=== PATIENT | female | born 1940 | race Caucasian/White ===

== ENCOUNTER 2019-11-05 08:39 | Inpatient (IN) | payer MEDICARE, BC ==
[2019-11-05] VITALS (8 sets, daily range): BP systolic 112–131; BP diastolic 67–84
[~2019-11-05] VITALS: Ht 165.1 cm; Wt 81.6 kg
--- NOTE | ~2019-11-05 | HEMODYNAMI ---
PATIENT:ASHVIN BERUMEN MEDICAL RECORD: [id number] : 42 LOCATION:[facility] ADMISSION DATE: 11/05/19 Generatedon:11/05/201910:28 Patient name: ASHVIN BERUMEN Patient #: [id number] SSN: : Date of study: 11/05/2019 Page: Of Hemodynamic Procedure Report Patient Data Patient Demographics Procedure consent was obtained First Name: ASHVIN Gender: Female Last Name: ATA : 1940 Patient #: [id number] Age: 79 year(s) Race: Additional ID: [id number] Past Medical History Allergies Allergen Reaction Date Comments Reported Sulfa drugs 11/05/2019 Admission Admission Data Admission Date: 11/05/2019 Admission Time: 8:39 Arrival Date: 11/05/2019 Arrival Time: 0:00 Height (in.): 64.96 BSA: 1.89 (m2) Height (cm.): 165 BMI: 29.99 (kg/m2) Weight (lbs.): 180 Weight (kg.): 81.65 Procedure Procedure Types Cath Procedure Diagnostic Procedure [facility] w/Coronaries Sedation Charges Moderate Sedation up to 45 minutes PCI Procedure Coronary Stent Coronary Stent Initial AMI/SVG/HYDROELECTRIC PLANT TECHNICIAN PTCA or Stent AMI-BMS/ROMAIN Initial Hemochron ACT Test Procedure Description Procedure Date Procedure Date: 11/05/2019 Procedure Start Time: 9:16 Procedure End Time: 10:26 Procedure Staff Name Function You Meehan MD Performing Physician Any Camacho RT Monitor Debbie Smith RN Nurse Kenzie Galvin RT Scrub Kim Garber RT Dry Cleaner Helper Indication NSTEMI Procedure Data Cath Procedure Fluoroscopy Diagnostic fluoroscopy Total fluoroscopy Time: time: 16.7 min 16.7 min Diagnostic fluoroscopy Total fluoroscopy dose: dose: 1954 mGy 1954 mGy Contrast Material Contrast Material Type Amount (ml) Isovue 300 191 Entry Location Entry Primary Successful Side Size Upsize 1 Upsize Entry Closure Thakkar ccessful Closure Location (Fr) (Fr) 2 (Fr) Remarks Device Remarks Femoral Right 6 Fr 6 Fr artery Short Mid-Length Estimated blood loss: 10 ml Diagnostic catheters Device Type Used For End Catheter Placement MULTIPACK JL 4.0 5Fr Left Coronary catheter Angiography MULTIPACK 3DRC 5Fr Right Coronary catheter Angiography MULTIPACK Pigtail 5 Fr LV Angiography catheter Procedure Complications No complications Procedure Medications Medication Administration Route Dosage 0.9% NaCl I.V. 100 ml/hr Oxygen etCO2 Nasal cannula 2 l/min Lidocaine 2% added to field 20 Heparin Flush Bag 2 bags (1000units/500ml NS) Benadryl I.V. 50 mg Zofran I.V. 4 mg Phenergan I.M. 25 mg Versed I.V. 2 mg Fentanyl I.V. 50 mcg Narcan I.V. 0.4 mg Versed I.V. 2 mg Lopressor I.V. 5 mg Integrilin Drip I.V. drip 6.5 ml/hr (75mg/100ml) Heparin Bolus I.V. 5000 units Integrilin (Bolus I.V. 7.3 ml 2mg/ml) Integrilin (Bolus wasted 2.7 ml 2mg/ml) Heparin Bolus I.V. 3000 units Fentanyl I.V. 50 mcg Hemodynamics Rest BSA: 1.89 (m2) O2 Consumption: Estimated: 180.11 (ml/min) O2 Consumption indexed : Estimated:95.3 (ml/min/m) Heart Rate: 83 (bpm) Pressure Samples Time Site Value (mmHg) Purpose Heart Use Rate(bpm) 9:56 LV 143/23,26 Snapshot 119 9:56 AO 139/83(114) Pullback 107 Gradients Valve Time Site Site 2 Mean SEP/DFP Peak To Heart Use 1 (mmHg) (sec/min) Peak Rate (mmHg) (bpm) Aortic 9:56 LV AO 45 21 107 139/83(114) Calculations Valve P-P Mean Valve Index Valve Source Name Gradient Area Flow (cm2) Aortic 45 45 Snapshots Pre Cath Intra NCS Post Cath Vital Signs Time Heart Resp SPO2 etCO2 NIBP (mmHg) Rhythm Pain Sedation Rate (ipm) (%) (mmHg) Status Level (bpm) 9:07:31 81 14 99 9 158/88(130) NSR 0 (11) 10(A) , No pain 9:11:45 120 17 99 4 124/98(106) ST 0 (11) 10(A) , No pain 9:16:45 108 [address] 0 (11) 10(A) , No pain 9:16:46 109 24 99 3.7 167/106(132) ST 0 (11) 10(A) , No pain 9:21:45 [address] 0 (11) 3(A) , No pain 9:23:05 116 19 [address] 0 (11) 10(A) , No pain 9:25:51 116 21 99 0.7 168/110(153) ST 0 (11) 10(A) , No pain 9:30:13 94 24 98 18.8 164/99(126) NSR 0 (11) 9(A) , No pain 9:34:32 84 20 95 17.2 154/84(115) NSR 0 (11) 9(A) , No pain 9:38:48 84 21 86 1.5 141/86(116) NSR 0 (11) 9(A) , No pain 9:43:02 85 19 93 36 141/84(119) NSR 0 (11) 9(A) , No pain 9:48:01 87 17 91 27 Measuring NSR 0 (11) 9(A) , No pain 9:48:29 87 18 92 24.8 142/82(112) NSR 0 (11) 9(A) , No pain 9:52:45 84 18 97 9.7 136/82(111) NSR 0 (11) 9(A) , No pain 9:56:57 89 16 96 24.8 149/87(112) NSR 0 (11) 9(A) , No pain 10:01:11 94 18 95 33.1 146/94(121) NSR 0 (11) 9(A) , No pain 10:05:19 93 18 95 15.7 149/95(130) NSR 0 (11) 9(A) , No pain 10:09:41 125 22 98 21.8 145/100(116) NSR 0 (11) 9(A) , No pain 10:14:40 109 12 99 11.2 Measuring NSR 0 (11) 9(A) , No pain 10:14:48 95 12 99 33 155/101(118) NSR 0 (11) 9(A) , No pain 10:19:04 86 14 99 0.7 145/82(125) NSR 0 (11) 9(A) , No pain 10:23:18 89 14 94 26.3 144/88(126) NSR 0 (11) 9(A) , No pain Medications Time Medication Route Dose Verified Delivered Reason Notes Effectiveness by by 9:16:50 0.9% NaCl I.V. 100 You Debbie used for ml/hr ShefaliSantiago Smith procedure MD DAILY 9:16:57 Oxygen etCO2 2 You Debbie used for Nasal l/min [place] Luis procedure cannula MD DAILY 9:17:01 Lidocaine 2% added 20ml You Orta for local to vial [facility] anesthetic field MD MCINTYRE 9:17:32 Heparin Flush 2 You You used for Bag bags [facility] procedure (1000units/500ml MD MCINTYRE NS) 9:17:41 Benadryl I.V. 50 mg You Debbie used for ShefaliSantiago Smith procedure MD DAILY 9:17:51 Zofran I.V. 4 mg You Debbie for nausea [facility] Smith MD, RN 9:18:11 Phenergan I.M. 25 mg You Debbie for nausea [facility] Smith MD RN 9:18:22 Versed I.V. 2 mg You Debbie for sedation [facility] Smith MD RN 9:18:27 Fentanyl I.V. 50 You Debbie for sedation mcg [facility] Smith MD, RN 9:22:41 Narcan I.V. 0.4 You Mirandaa used for mg [facility] Santiago mckenna MD, RN 9:25:29 Versed I.V. 2 mg You Debbie for sedation [facility] Smith MD RN 9:26:15 Heparin Bolus I.V. 5000 You Debbie for verif ied units [place] Luis anticoagulation with Dr. MD DAILY [place] 9:26:31 Integrilin I.V. 7.3 You Debbie for (Bolus 2mg/ml) ml [facility] Santiago Smith antiplatelet RN therapy 9:29:15 Lopressor I.V. 5 mg You Debbie for [facility] Santiago Smith hypertension MD DAILY 9:48:07 Integrilin Drip I.V. 6.5 You Debbie for (75mg/100ml) drip ml/hr [facility] Santiago Smith antiplatelet RN therapy 9:48:54 Integrilin wasted 2.7 You Lewis for (Bolus 2mg/ml) ml [facility] Santiago Smith antiplatelet RN therapy 9:51:42 Heparin Bolus I.V. 3000 You Lewis for verif ied units [facility] Santiago Smith anticoagulation with Dr. MCINTYRE RN [facility] 10:19:33 Fentanyl I.V. 50 Yuo Lewis Per physician [facility] Santiago Smith MD stage manager Log Time Note 8:50:16 Kim Garber RT(R) sent for patient. Start room use. 8:58:07 Informed consent obtained and on chart 8:58:55 Indication : NSTEMI 8:59:12 Procedure Status Emergent Heart Cath (AMI). 8:59:31 Time tracking: Regular hours (M-F 7:00 - 5:00) 8:59:39 Plan of Care:Hemodynamics will remain stable., Cardiac rhythm will remain stable., Comfort level will be maintained., Respiratory function will remain adequate., Patient/ family verbilizes understanding of procedure., Procedure tolerated without complication., Recovers from procedure without complications.. 8:59:46 ACC Patient presents with STEMI CCS Anginal Class 4--Inability to carry out any physical activity w/o angina. Angina may occur at rest. 8:59:59 Patient received from ED to CCL 2 Alert and oriented. Tansferred to table in Supine position. 9:00:02 Warm blankets applied, and edu hugger turned on for patient comfort. 9:00:03 Correct patient and procedure confirmed by team. 9:00:04 ECG and BP/O2 sat monitors applied to patient. 9:01:34 Full Disclosure recording started 9:01:37 H&P Date Dictated: 11/05/2019 ER History on chart.. 9:01:38 Pre-procedure instructions explained to patient. 9:01:38 Pre-op teaching completed and patient verbalized understanding. 9:01:39 Family unavailable. 9:01:55 Patient allergic to Sulfa drugs 9:01:57 Is patient on blood thinner?No 9:01:58 Patient diabetic? Yes. 9:02:00 If diabetic: On Metformin? Unknown 9:02:03 Previous problem with sedation/anesthesia? No ? 9:02:04 Snore? Yes 9:02:04 Sleep apnea? No 9:02:05 Deviated septum? No 9:02:12 Patient Weight : 180 lbs 9:02:15 Opens mouth fully? Yes 9:02:16 Sticks out tongue? Yes 9:02:17 Airway obstruction? No ? 9:02:19 Dentures? No ? 9:02:21 Pre procedure: right dorsailis pedis pulse 1+ Palpable, but thready & weak; easily obliterated 9:02:36 Patient pain scale 3/10 ?. 9:02:42 IV patent on arrival in left hand with 0.9% NaCl at [facility]. 9:02:52 Lab results pending, not drawn. 9:02:55 Right groin area was prepped with chlora-prep and draped in sterile fashion 9:02:56 Alarms reviewed by R. N. 9:02:56 Sharps counted by scrub and verified by R.N. 9:04:08 Use device set Femoral Dx 9:04:10 ACIST Syringe (53067) opened to sterile field. 9:04:11 Bag Decanter (2002S) opened to sterile field. 9:04:11 Medline Cath Pack ([id number]) opened to sterile field. 9:04:13 ACIST Hand Control (80613) opened to sterile field. 9:04:14 ACIST Manifold (84275) opened to sterile field. 9:04:16 DIAGNOSTIC Multipack 5Fr catheter set ([id number]) opened to sterile field. 9:04:17 Tegaderm 4 x 4 (1626W) opened to sterile field. 9:04:21 EMERALD Guide Wire (264-638) opened to sterile field. 9:04:30 SHEATH 6FR [place] (HKA530) opened to sterile field. 9:04:45 Quick Combo opened to sterile field. 9:06:07 Quick combo pads placed on patients chest and back. 9:06:20 Vital chart was started 9:06:21 Baseline sample Acquired. 9:06:38 Rhythm: sinus rhythm 9:09:16 Arrival Date: 11/05/2019 12:00:00 AM 9:09:39 Patient Height : 64.96 inches 9:11:34 Zero performed for pressure channel P1 9:15:27 Physician arrived 9:15:28 --------ALL STOP TIME OUT------ 9:15:28 Final Timeout: patient, procedure, and site verified with staff and physician. All members of the team are in agreement. 9:15:33 Right groin site verified by team. 9:15:39 Fire Safety Assessment: A--An alcohol-based skin anteseptic being used preoperatively., C--Open oxygen or nitrous oxide is being used., D--An ESU, laser, or fiber-optic light is being used. 9:15:45 Physical assessment completed. ASA score P 2 - A patient with mild systemic disease as per You Meehan MD. 9:15:55 Maximum allowable contrast dose (3.7 X eGFR X 0.75)? ml.UNABLE TO CALCULATE DUE TO NO LAB PRIOR. 9:16:02 Sedation plan: IV Moderate Sedation Medication:Versed, Fentanyl 9:16:09 Procedure started. 9:16:17 Local anesthetic to right femoral artery with Lidocaine 2% by You Meehan MD.INITIAL ACCESS ONLY 9:16:23 Zero performed for pressure channel P1 9:16:50 0.9% NaCl 100 ml/hr I.V. was administered by Debbie Smith RN; used for procedure; Verbal order read back and verified. 9:16:57 Oxygen 2 l/min etCO2 Nasal cannula was administered by Debbie Smith RN; used for procedure; Verbal order read back and verified. 9:17:01 Lidocaine 2% 20ml vial added to field was administered by You Meehan MD; for local anesthetic; Verbal order read back and verified. 9:17:10 A 6 Fr Short sheath was inserted into the Right Femoral artery 9:17:26 A MULTIPACK JL 4.0 5Fr catheter was advanced over the wire and used for Left Coronary Angiography. 9:17:32 Heparin Flush Bag (1000units/500ml NS) 2 bags was administered by You Meehan MD; used for procedure; Verbal order read back and verified. 9:17:41 Benadryl 50 mg I.V. was administered by Debbie Smith RN; used for procedure; Verbal order read back and verified. 9:17:51 Zofran 4 mg I.V. was administered by Debbie Luis RN; for nausea; Verbal order read back and verified. 9:18:11 Phenergan 25 mg I.M. was administered by Debbie Smith RN; for nausea; Verbal order read back and verified. 9:18:22 Versed 2 mg I.V. was administered by Debbie Smith RN; for sedation; Verbal order read back and verified. 9:18:27 Fentanyl 50 mcg I.V. was administered by Debbie Smith RN; for sedation; Verbal order read back and verified. 9:19:11 LCA angiography performed. 9:19:48 Catheter removed. 9:20:00 A MULTIPACK 3DRC 5Fr catheter was advanced over the wire and used for Right Coronary Angiography. 9:20:27 INFLATOR Merit BasixCompak ([id number]) opened to sterile field. 9:21:01 WHISPER 300cm guide wire ([id number]) opened to sterile field. 9:21:13 RCA angiography performed. 9::19 Injector settings: Ml/sec: 3, Volume: 6, 9:21:36 Catheter removed. 9:21:40 Proceeding to intervention. 9::53 6 Fr XBLAD3.5 guide catheter was inserted over the wire 9:22:24 [id number] wire advanced. 9::41 Narcan 0.4 mg I.V. was administered by Debbie Smith RN; used for procedure; Verbal order read back and verified. 9:25:16 Inflate balloon Inflation number: 1 A EMERGE OTW 2.5 x 15 balloon ([id number]) was prepped and advanced across the Prox LAD , then inflated to 10 GAYATRI for 0:14 (min:sec) . 9:25:29 Versed 2 mg I.V. was administered by Debbie Smith RN; for sedation; Verbal order read back and verified. 9::34 Inflation number: 2 The EMERGE OTW 2.5 x 15 balloon ([id number]) was reinflated across the Prox LAD , to 10 GAYATRI for 0:12 (min:sec) . 9:26:02 ACC Pre-intervention ZONIA Flow is 0. 9:26:15 Heparin Bolus 5000 units I.V. was administered by Debbie Smith RN; for anticoagulation; verified with Dr. Hamm Verbal order read back and verified. 9:26:24 Pre PCI Site: [place] pLAD has 100% stenosis. 9:26:31 Integrilin (Bolus 2mg/ml) 7.3 ml I.V. was administered by Debbie Smith RN; for antiplatelet therapy; Verbal order read back and verified. 9:26:52 Balloon removed over the wire. 9:27:17 After pt given 50mcg Fentanyl IVP, pt desat to 40%SpO2, NRB applied at 15L w/ OPA, 0.4mg Narcan given IVP. Pt O2 recovered to 100%SpO2. Pt now aggitated, moving and thrashing on bed. Will give 2mg more Versed per MD. Pt returned to 4LNC and OPA removed. 9:28:15 Place stent Inflation Number: 3 A DAMIAN OTW 2.5 x 18 stent ([id number]) was prepped and advanced across the Prox LAD . The stent was deployed at 14 GAYATRI for 0:18 (min:sec) . 9:29:02 Inflation number: 4 The stent balloon was then re-inflated across the Prox LAD to 14 GAYATRI for 0:19 (min:sec) . 9:29:15 Lopressor 5 mg I.V. was administered by Debbie Smith RN; for hypertension; Verbal order read back and verified. 9:29:56 Inflation number: 5 The stent balloon was then re-inflated across the Prox LAD to 8 GAYATRI for 0:09 (min:sec) . 9:30:37 Stent catheter was removed intact over wire. 9:30:42 Wire removed. 9:30:43 Guide catheter removed. 9:30:56 GUIDE 6FR HS I SH catheter (TR1HPRJO) opened to sterile field. 9:31:09 WHISPER 300cm guide wire ([id number]) opened to sterile field. 9:31:35 6 Fr HS1SH guide catheter was inserted over the wire 9:31:41 ACC Pre-intervention ZONIA Flow is 3. 9:32:09 Pre PCI Site: [place] mRCA has 99% stenosis. 9:35:56 SHEATH 6FR [place] (RSR01) opened to sterile field. 9:36:27 Sheath upsized to a 6 Fr Mid-Length. 9:36:42 Guide catheter removed. 9:36:57 GUIDE 6FR JR 4.0 catheter (GY3RJ50) opened to sterile field. 9:37:14 6 Fr JR4 guide catheter was inserted over the wire 9:38:34 Guide catheter removed. 9:39:21 GUIDE 6FR AR 1.0 catheter (EC5PI60) opened to sterile field. 9:40:50 Pt desat to 86% SpO2, NRB reapplied. 9:40:55 Guide catheter removed. 9:41:27 6 Fr HS1SH guide catheter was inserted over the wire 9:45:05 Wire advanced across lesion. 9:46:17 Inflation number: 1 The EMERGE OTW 2.5 x 15 balloon ([id number]) was reinSERTED AND REMOVED UNABLE TO CROSS the Mid RCA , to 0 GAYATRI for 0:00 (min:sec) . 9:46:28 Balloon removed over the wire. 9:48:07 Integrilin Drip (75mg/100ml) 6.5 ml/hr I.V. drip was administered by Debbie Smith RN; for antiplatelet therapy; Verbal order read back and verified. 9:48:54 Integrilin (Bolus 2mg/ml) 2.7 ml wasted was administered by Debbie Smith RN; for antiplatelet therapy; Verbal order read back and verified. 9:48:57 Inflate balloon Inflation number: 2 A EMERGE OTW 2.0 x 15 balloon ([id number]) was prepped and advanced across the Mid RCA , then inflated to 10 GAYATRI for 0:14 (min:sec) . 9:49:29 Inflation number: 3 The EMERGE OTW 2.0 x 15 balloon ([id number]) was reinflated across the Mid RCA , to 10 GAYATRI for 0:14 (min:sec) . 9:50:58 CHOICE PT Extra Support J 300cm guide wire ([id number]) opened to sterile field. 9:51:42 Heparin Bolus 3000 units I.V. was administered by Debbie Smith RN; for anticoagulation; verified with Dr. Hamm Verbal order read back and verified. 9:52:06 THE EMERGE BALLOON WAS REINSERTED TO EXCHANGE THE WIRE FOR 300 EXTRA SUPPORT 9:52:15 Balloon removed over the wire. 9:54:19 Place stent Inflation Number: 4 A DAMIAN OTW 3.0 x 26 stent ([id number]) was prepped and advanced across the Mid RCA . The stent was deployed at 14 GAYATRI for 0:24 (min:sec) . 9:54:43 Stent catheter was removed intact over wire. 9:54:47 Wire removed. 9:54:49 Guide catheter removed. 9:55:08 A MULTIPACK Pigtail 5 Fr catheter was advanced over the wire and used for LV Angiography. 9:55:21 Injector settings: Ml/sec: 5, Volume: 15, 9:55:44 LV gram done using COOLEY 9:56:42 EF : 20 % 9:56:44 LV hemodynamics recorded. 9:56:49 Catheter removed. 9:57:11 ACC Post-intervention ZONIA Flow is 3. 9:57:24 Post PCI Site: [place] pLAD AND MID RCA has 0% stenosis. 9:58:21 THE 45 CM DESTINATION SHEATH IS EXCHANGED FOR THE SHORT 6 FINNISH SHEATH. 9:59:39 FEMSTOP Gold ([id number]) opened to sterile field. 10:00:42 Procedure ended.(Physican Out) 10:01:10 PT MOVED TO BED AND SHEATH REMOVED AND FEMSTOP PLACED. 10:01:22 ACT drawn and resulted at >400- out of range seconds. (normal therapeutic range 180-240 seconds). 10:02:05 Contrast amount:Isovue 300 191ml. 10:02:15 Fluoroscopy time 16.70 minutes. 10:02:21 Fluoroscopy dose: 1954 mGy 10:02:21 Flurop Dose total: 4 10:02:43 Dose Area Product 078290 mGy/cm. 10:05:31 Sharps counted by scrub and verified by R.N. 10:07:06 THE SHEATH IS REMOVED AND PRESSURE IS HELD. 10:07:14 Post right femoral artery:hematoma 10:19:33 Fentanyl 50 mcg I.V. was administered by Debbie Smith RN; Per physician; Verbal order read back and verified. 10:20:55 Femstop placed over the right femoral artery at 200 mmHg. Hemostasis achieved. 10:21:19 Estimated blood loss: 10 ml 10:21:24 Post procedure rhythm: unchanged. 10:21:25 Post procedure instruction explained to patient.Patient verbalizes understanding. 10:21:27 Patient needs reinforcement of post procedure teaching. 10:23:32 Procedure type changed to Cath procedure, Diagnostic procedure, LHC, LHC w/Coronaries, Sedation Charges, Moderate Sedation up to 45 minutes, PCI procedure, Coronary Stent, Coronary Stent Initial, AMI/SVG/HYDROELECTRIC PLANT TECHNICIAN PTCA or Stent, AMI-BMS/ROMAIN Initial, Hemochron ACT Test 10::43 Procedure and supply charges have been captured, reviewed, submitted and are correct. 10::52 Procedure Complication : No complications 10::22 BLOOD DRAWN AND SENT TO LAB AT END OF PROCEDURE. 10::25 Vital chart was stopped 10::28 [facility] Findings: MVD- PCI performed (see procedure note) 10::45 Operative report dictated upon procedure completion. 10::46 See physician's report for complete and final results. 10::49 Report given to Pre/Post Procedure Room. 10::57 Patient transfered to Pre/Post Procedure Room with Stretcher. 10::02 Procedure ended. 10:: Full Disclosure recording stopped 10:: ACC-PCI Only Patient was given prescriptions, or instructed by You Meehan MD to start/continue the following medications upon discharge: Plavix 10::33 End room use (Document Last) Intervention Summary Intervention Notes Time ActionType Lesion and Equipment Action# Pressure Duration Attributes Used 9:25:16 Inflate Prox LAD EMERGE OTW 1 10 00:14 balloon 2.5 x 15 balloon ([id number]) 9:25:34 Reinflate Prox LAD EMERGE OTW 2 10 00:12 balloon 2.5 x 15 balloon ([id number]) 9:28:15 Place stent Prox LAD DAMIAN OTW 2.5 3 14 00:18 x 18 stent ([id number]) 9:29:02 Reinflate Prox LAD DAMIAN OTW 2.5 4 14 00:19 stent x 18 stent balloon ([id number]) 9:29:56 Reinflate Prox LAD DAMIAN OTW 2.5 5 8 00:09 stent x 18 stent balloon ([id number]) 9:46:17 Reinflate Mid RCA EMERGE OTW 1 0 00:00 balloon 2.5 x 15 balloon ([id number]) 9:48:57 Inflate Mid RCA EMERGE OTW 2 10 00:14 balloon 2.0 x 15 balloon ([id number]) 9:49:29 Reinflate Mid RCA EMERGE OTW 3 10 00:14 balloon 2.0 x 15 balloon ([id number]) 9:54:19 Place stent Mid RCA DAMIAN OTW 3.0 4 14 00:24 x 26 stent ([id number]) Device Usage Item Name Manufacture Quantity Catalog Number Hospital Part Current M inimal Lot# / Charge Number Stock Stock Serial# Code ACIST Syringe Acist 1 04894 394731 331128 579663 2 0 (56810) Medical Systems Inc Bag Decanter Microtek 1 372125 75086 960896 5 () Medical Inc. Medline Cath Medline 1 [id number] 909996 03882 737691 5 Pack ([id number]) ACIST Hand Acist 1 24896 456719 231157 317752 5 Control Medical (53273) Systems Inc ACIST Acist 1 35821 962819 349714 624891 5 Manifold Medical (42157) Systems Inc DIAGNOSTIC Cardinal 1 WM8252 627327 98570 678225 3 0 Multipack 5Fr Health catheter set (HY4969) Tegaderm 4 x 3M 1 1626W 178346 908857 446513 5 4 (1626W) EMERALD Guide Cardinal 1 502-455 462551 087339 635888 5 Wire Health (502-455) SHEATH 6FR Terumo 1 THE435 143336 355363 024040 4 0 [place] (ITJ850) Quick Combo Nasseo Systems 1 74495-193437 167600 758026 222062 5 MULTIPACK JL Cardinal 1 751960 5 4.0 5Fr Health catheter MULTIPACK Cardinal 1 731418 5 3DRC 5Fr Health catheter INFLATOR Merit 1 SZ2533 546233 175330 438200 1 5 [facility] Medical BasixCompak (AI8664) WHISPER 300cm [place] 2 [id number] 437236 931913 795077 5 guide wire Vascular ([id number]) EMERGE OTW [place] 1 [id number] 025273 234589 442541 5 [id number] 2.5 x 15 Scientific balloon ([id number]) DAMIAN OTW 2.5 Medtronic 1 [id number] 873792 40737 909958 5 [id number] x 18 stent ([id number]) GUIDE 6FR HS Medtronic 1 [id number] 023867 70019 333823 1 I SH catheter ([id number]) SHEATH 6FR Terumo 1 RSR01 407460 78002 467612 5 Destination (RSR01) GUIDE 6FR JR Medtronic 1 [id number] 893290 90550 744868 1 4.0 catheter ([id number]) GUIDE 6FR AR Medtronic 1 [id number] 757845 80801 485811 1 1.0 catheter (QF4BV73) EMERGE OTW [place] 1 [id number] 417090 275287 929235 5 [id number] 2.0 x 15 Scientific balloon ([id number]) CHOICE PT [place] 1 [id number] 455423 903581 682470 5 Extra Support Scientific J 300cm guide wire ([id number]) DAMIAN OTW 3.0 Medtronic 1 [id number] 530421 7405472 968683 5 [id number] x 26 stent ([id number]) MULTIPACK Cardinal 1 121784 5 Pigtail 5 Fr Health catheter FEMSTOP Gold St Lon 1 [id number] 001914 931427 205977 5 ([id number]) Signature Audit [place] Stage Time Signature Unsigned Intra-Procedure 11/05/2019 Any Camacho 10:27:03 AM RT(R) (CV) Intra-Procedure 11/05/2019 Debbie Smith RN 10:27:43 AM Intra-Procedure 11/05/2019 You Meehan MD 10:28:08 AM Signatures Performing Physician : You Signature : [facility] MCINTYRE Date : Time : Monitor : Any Camacho RT Signature : Date : Time : Nurse : Debbie Smith RN Signature : Date : Time : [facility] [address] [place] [address]
[2019-11-05] MEDS ORDERED: GLIPIZIDE10 MG PO (08:45)
[2019-11-05] MEDS ORDERED: NORVASC2.5 MG PO (08:45)
[2019-11-05] MEDS ORDERED: NP THYROID90 MG PO (08:46)
--- NOTE | 2019-11-05 08:50 | NUR ---
IT QUALITY ASSURANCE ANALYST TEAM AT BEDSIDE FOR TRANSPORT TO LAB
[2019-11-05 10:16] LABS: HEMATOCRIT 40.8 % (36.0-48.0); HEMOGLOBIN 13.5 g/dL (12-16); LYMPHOCYTES 18.5 % (15-50); MCH 31.3 pg (26.0-34.0); MCHC 33.1 g/dL (31.0-37.0); MCV 94.7 fL (80.0-100.0); MEAN PLATELET VOLUME 10.9 fL (7.4-10.4); NEUTROPHILS 76.5 % (40-80); PLATELET COUNT 189 10x3/uL (130-400); RBC 4.31 10x6/uL (4.00-5.40)
[2019-11-05 10:30] LABS: ANION GAP 8.9 mmol/L (8-16); CALCIUM 7.5 mg/dL (8.5-10.1); CARBON DIOXIDE 28.3 mmol/L (21.0-32.0); CHOL - HDL RATIO 5.6 ratio (2.3-4.1); CREATININE - SERUM 0.8 mg/dL (0.6-1.3); LDL-HDL RATIO 3.5 ratio (1.5-3.5); POTASSIUM - SERUM 4.2 mmol/L (3.5-5.1)
--- NOTE | 2019-11-05 11:10 | NUR ---
PT'S AT BEDSIDE. CALL LIGHT WITHIN REACH. VSS AT THIS TIME. RIGHT GROIN STABLE. FEMSTOP IN PLACE. RIGHT PEDAL PULSE PALPABLE. PT STILL ON 100% NRB. OPENS EYES AND FOLLOWS COMMANDS.
--- NOTE | 2019-11-05 11:25 | NUR ---
RIGHT GROIN HEMATOMA STABLE. VSS AT THIS TIME. CALL LIGHT WITHIN REACH. FAMILY AT BEDSIDE. NO NEEDS AT THIS TIME.
--- NOTE | 2019-11-05 11:55 | NUR ---
RIGHT GROIN STABLE. FEMSTOP IN PLACE AT 235mmHg. NO NEW BLEEDING NOTED. HEMATOMA STABLE. BRUISING NOTED TO RIGHT LABIA, RIGHT UPPER THIGH, AND UNDER FEMSTOP. VSS AT THIS TIME. NO NEEDS. CALL LIGHT WITHIN REACH.
--- NOTE | 2019-11-05 12:31 | NUR ---
FEMSTOP DOWN TO 200mmHg. TOLERATING WELL. BP STABLE AT 133/76. HR UP TO 103 SINUS TACH. NO NEW BLEEDING NOTED TO RIGHT GROIN. PT MORE ALERT AND NOT ABLE TO GIVE ME A PAIN SCALE NUMBER, BUT DOES MOAN WHEN CHECKING ABDOMEN TENDERNESS. TENDERNESS NOTED TO ALL QUADRANTS. DR. SPRING AWARE. WILL RECHECK H AND H AT THIS TIME.
--- NOTE | 2019-11-05 12:51 | NUR ---
DR. SPRING AT BEDSIDE. SPOKE WITH PT'S . UPDATED HIM ON STATUS AND PLAN OF CARE. PT CHANGED OVER FROM A NON REBREATHER TO 7L SIMPLE MASK. O2 SAT STABLE AT 94%. RESPIRATIONS 16.
[2019-11-05 13:06] LABS: HEMATOCRIT 44.3 % (36.0-48.0); HEMOGLOBIN 14.2 g/dL (12-16)
--- NOTE | 2019-11-05 13:38 | NUR ---
16 FR HARLEY CATHETER PLACED PER MD ORDER. VSS AT THIS TIME. HR 99. RIGHT GROIN FEMSTOP IN PLACE. PRESSURE DECREASED TO 180mmHg AT THIS TIME. TOLERATED WELL. STILL IN SUPINE POSITION. PT'S REPEAT H & H RESULTS REVIEWED. THEY ARE STABLE AT THIS TIME.
--- NOTE | 2019-11-05 14:00 | NUR ---
RIGHT GROIN FEMSTOP WEANED TO 150mmHg. TOLERATING WELL. NO NEW BLEEDING NOTED. HEMATOMA STABLE. RIGHT PEDAL PULSE PALPABLE.
--- NOTE | 2019-11-05 14:20 | NUR ---
FEMSTOP WEANED TO 100mmHg. TOLERATING WELL. NO NEW BLEEDING NOTED. VSS. PT C/O PAIN IN RIGHT GROIN AT FEMSTOP SITE. SHE IS MORE AWAKE AND ALERT AT THIS TIME. WILL GIVE PAIN MEDICATION ORDERED.
--- NOTE | 2019-11-05 15:08 | NUR ---
FEMSTOP WEANED TO 75mmHg. TOLERATING WELL. VSS. REPORT CALLED TO ABIMBOLA JEFFERSON IN ICU.
--- NOTE | 2019-11-05 15:25 | NUR ---
PT TAKEN DOWN TO ROOM 2305 BY STRETCHER. HANDOFF GIVEN AT BEDSIDE. PT'S WITH HER.
--- NOTE | 2019-11-05 16:17 | NUR ---
NEW PATIENT ADMIT FROM ORE FIELDER VIA STRETCHER. PATIENT TRANSFERRED TO BED WITHOUT DIFFICULTY. PATIENT IS DRWOSY. AROUSE TO VOICE AND ORIENTED X 4. VSS. RT GROIN, LABIA AND RT UPPER WITH SOFT HEMATOMA FEM STOP IN PLACE. INFLOATED TO 66. PATIENT DENIES ANY NEEDS OR PAIN. AT BS. WILL CONTINUE WITH PLAN OF CARE. AR UP X 2 BED IN LOW POSITION AND CALL LIGHT IN REACH. O2@7L SIMPLE MASK. RT FA INFUSING ENTERGRALIN @ 6.5.
--- NOTE | 2019-11-05 18:21 | NUR ---
PATIENT COMPLAINS OF NAUSEA. SMALL AMOUNT OF CLEAR EMESIS X 2. PATIENT DENIES ANY PAIN. CALLED CARDIOLOGY SPOKE WITH PEDRO GENTILE RECEIVED NEW ORDER FOR ZOFRAN 4MG EVERY 4 HOURS NEEDED.
--- NOTE | 2019-11-05 18:48 | NUR ---
PATIENT IS STABLE AND VSS. PATIENT LAYING IN BED WITH EYES CLOSED AND BREATHING EVENLY. RT GROIN DRSG C/D/I. RT GROIN BRUISED WITH SOFT HEMATOMA. HARLEY INTACT AND DRNG CAILINAER YELLOW URINE. WILL CONTINUE TO MONITOR. SR UP X 2 BED IN LOW POSITION AND CALL LIGHT IN REACH.
[2019-11-06] VITALS (7 sets, daily range): BP systolic 117–134; BP diastolic 71–76; Ht 165.1 cm; Wt 81.6 kg
--- NOTE | 2019-11-06 06:37 | NUR ---
0237 DRESSING REMOVED FROM RIGHT GROIN. NOTED BRUISING BUT NO BLEEDING. REDRESSED WITH DRY DRESSING. 0520 DRESSING CHECKED FOR ANY BLEEDING. NONE NOTED.
[2019-11-06 09:12] LABS: ANION GAP 6.4 mmol/L (8-16); CALCIUM 8.2 mg/dL (8.5-10.1); CARBON DIOXIDE 32.8 mmol/L (21.0-32.0); CREATININE - SERUM 0.8 mg/dL (0.6-1.3); POTASSIUM - SERUM 4.2 mmol/L (3.5-5.1)
[2019-11-06 10:02] LABS: BASOPHILS 0.2 % (0-2); EOSINOPHILS 0.1 % (0-7); HEMATOCRIT 38.7 % (36.0-48.0); HEMOGLOBIN 12.3 g/dL (12-16); IMMATURE GRANULOCYTES 0.2 % (0-5); LYMPHOCYTES 18.1 % (15-50); MCHC 31.8 g/dL (31.0-37.0); MEAN PLATELET VOLUME 11.5 fL (7.4-10.4); MONOCYTES 11.2 % (2-11); NEUTROPHILS 70.2 % (40-80); PLATELET COUNT 199 10x3/uL (130-400); RBC 3.97 10x6/uL (4.00-5.40); RDW 13.7 % (11.5-14.5); WBC 10.5 10x3/uL (4.8-10.8)
[2019-11-06 10:11] LABS: MCV 97.5 fL (80.0-100.0)
--- NOTE | 2019-11-06 14:53 | OP ---
PATIENT NAME: ASHVIN BERUMEN MEDICAL RECORD: [id number] :42 LOCATION:D.[facility] D.2305 ADMISSION DATE:11/05/19 SURGEON: DAVID SPRING MD DATE OF OPERATION: 11/05/2019 PROCEDURE: Left heart catheterization, selective coronary angiography, right femoral artery approach. CATHETERS: A 5-Finnish sheath, 5/4 left and right Sruthi, 5/4 pig. The procedure was well tolerated. Previously, he had urgent PTCA stenting. FINDINGS: Left ventriculography, 30-degree COOLEY view shows anterior apical, apical, inferior apical hypokinesis. Overall, LV function 20%. CORONARY ANATOMY: LEFT MAIN: Left main is free of disease. LAD: Totally occluded in its proximal portion, obviously infarct related artery. CIRCUMFLEX: Moderate-sized circumflex, free of disease. RIGHT CORONARY ARTERY: Has a better than 90% stenosis. ZONIA flow distally in place. Some thrombus formation here as well. DESCRIPTION OF PROCEDURE: A 5-Finnish sheath was exchanged for a long 6-Finnish sheath. LAD was addressed with a pre-deployment balloon was a 2.5 x 15 mm Tattnall balloon up to 10 atmospheres. Stent deployed was a 2.5 x 18 mm Stephenson drug-eluting stent. The 90% right was addressed with a pre-deployment balloon was 2.5 x 15 mm Tattnall. Stent deployed was a long 3.0 x 26 mm stent. IMPRESSION AND PLAN: Successful percutaneous transluminal coronary angioplasty stenting of the left anterior descending with 100% stenosis, no significant residual. Percutaneous transluminal coronary angioplasty stenting of the right, 90+ percent stenosis, no significant residual. The patient was transferred to ICU in critical condition with a marked decreased EF. Discussed in detail with the family. Supplied inotropic support as needed, etc. TRANSINT:[id number] Voice Confirmation ID: [id number] DOCUMENT ID: [id number] DAVID SPRING MD at 1453 CC: [id number] DICTATION DATE: 11/05/19 1004 PACKER DRIED BEEF: 11/05/19 1435 ADM IN [place] [address] [place] [address]
--- NOTE | 2019-11-06 14:53 | HP ---
PATIENT: ASHVIN BERUMEN MEDICAL RECORD: [id number] ACCOUNT: [id number] LOCATION:[facility]2305 : 42 ADMISSION DATE: 11/05/19 PCP: No PCP HISTORY AND PHYSICAL EXAMINATION HISTORY OF PRESENT ILLNESS: A 79-year-old female with history of hypertension, diabetes mellitus, dyslipidemia, transferred from [facility] with STEMI. Symptoms began about 2 hours prior to admission, received thrombolytics, transferred here, still having some arm and chest pain. She was brought to paint laboratory technician on an urgent basis. PAST MEDICAL HISTORY: Includes; 1. History of hypertension. 2. Hyperlipidemia. 3. Diabetes mellitus. ALLERGIES: SULFA. MEDICATIONS: Amlodipine 2.5 every day, Glucotrol 10 every day. PHYSICAL EXAMINATION: GENERAL: Pleasant female in no acute distress, appears stated age, mildly uncomfortable. VITAL SIGNS: Blood pressure 164/84, pulse 88 and regular. HEENT: Normocephalic and atraumatic. NECK: No JVD or bruit. HEART: Regular, S4 gallop is noted. LUNGS: Good air excursion. ABDOMEN: Soft, nontender. EXTREMITIES: Pulse 2+. No edema. IMPRESSION AND PLAN: ST elevation myocardial infarction, urgent angiography intervention as indicated. TRANSINT:[id number] Voice Confirmation ID: [id number] DOCUMENT ID: [id number] DAVID SPRING MD at 1453 CC: [id number] DICTATION DATE: 11/05/19 0909 MACHINE REPAIR PERSON: 11/05/19 1217 ADM IN [place] [place] [address]
--- NOTE | 2019-11-06 18:37 | NUR ---
TRANSFER FROM ICU BY W/C. CALL LIGHT IN REACH. WILL CONT. PLAN OF CARE.
--- NOTE | 2019-11-06 19:00 | NUR ---
RECEIVED BEDSIDE REPORT. PATIENT IS RESTING COMFORTABLY IN BED. RESPIRATIONS ARE EVEN AND UNLABORED. NO S/S DISTRESS. NO C/O PAIN. CALL LIGHT WITHIN REACH. WILL CPOC.
[2019-11-07] VITALS: BP 115/65
[2019-11-07 04:00] VITALS: BP 114/66
[2019-11-07 08:00] VITALS: BP 119/65
--- NOTE | 2019-11-07 10:09 | MORECARE ---
CASE MANAGEMENT DISCHARGE SUMMARY PATIENT: ASHVIN BERUMEN UNIT: [id number] ADM DATE: 11/05/19 AGE: 79 : 41 SEX: F ROOM/BED: D.9467 AUTHOR: NOA GODINEZ PHYSICIAN: REFERRING PHYSICIAN: DAVID SPRING MD DATE OF SERVICE: 11/07/19 Discharge Plan Patient Name: ASHVIN BERUMEN [facility] [facility] 1940 Planned Disposition: Home Anticipated Discharge Date: 11/07/19 Discharge Date: Expected LOS: 2 Initial Reviewer: [email or web address] Initial Review Date: 11/05/2019 Generated: 11/07/19 11:08 am Patient Name: ASHVIN BERUMEN Page [id number] at 1009 All edits/amendments must be made on the electronic document DICTATION DATE: 11/07/19 1008 EXECUTIVE MANAGER: ALEC 11/07/19 1008 RPT#: [id number] DC DATE: STATUS: ADM IN [facility] [address] [place] [address] END OF REPORT
--- NOTE | 2019-11-07 10:16 | MORECARE ---
CASE MANAGEMENT DISCHARGE SUMMARY PATIENT: ASHVIN BERUMEN UNIT: [id number] ADM DATE: 11/05/19 AGE: 79 : 41 SEX: F ROOM/BED: D.[facility]8 AUTHOR: NOA GODINEZ PHYSICIAN: REFERRING PHYSICIAN: DAVID SPRING MD DATE OF SERVICE: 11/07/19 Discharge Plan Patient Name: ASHVIN BERUMEN Facility: [facility]:[place] : 1940 Planned Disposition: Home Anticipated Discharge Date: 11/07/19 Discharge Date: Expected LOS: 2 Initial Reviewer: [email or web address] Initial Review Date: 11/05/2019 Generated: 11/07/19 11:15 am DCPIA - Discharge Planning Initial Assessment Updated by [email or web address]: Johanna Larry on 11/07/19 10:13 am * Is the patient Alert and Oriented? Yes * How many steps to enter\exit or inside your home? * PCP Dr. Jorge L Manzanares * Pharmacy [facility] * Preadmission Environment Home with Family * ADLs Independent * Equipment Glucometer Rolling Walker Shower Chair * Other Equipment NA * List name and contact numbers for known caregivers / representatives who currently or will assist patient after discharge: Megan.Silvano Amanda (spouse) [phone] * Verbal permission to speak to the caregivers and representatives has been obtained from the patient. Yes * Community resources currently utilized None * Please name any agencies selected above. NA * Additional services required to return to the preadmission environment? No * Can the patient safely return to the preadmission environment? Yes * Has this patient been hospitalized within the prior 30 days at any hospital? No Last DP export: 11/07/19 9:09 a Patient Name: ASHVIN BERUMEN Page [id number] at 1016 All edits/amendments must be made on the electronic document DICTATION DATE: 11/07/19 1015 ACTIVITIES COORDINATOR: ALEC 11/07/19 1015 RPT#: [id number] DC DATE: STATUS: ADM IN [facility] [address] [id number] END OF REPORT
[2019-11-07] MEDS ORDERED: BAYER CHEWABLE81 MG PO (10:18)
[2019-11-07] MEDS ORDERED: LIPITOR40 MG PO (10:22)
[2019-11-07] MEDS ORDERED: PLAVIX75 MG PO (10:23)
[2019-11-07] MEDS ORDERED: COZAAR50 MG PO (10:23)
--- NOTE | 2019-11-07 10:23 | MORECARE ---
CASE MANAGEMENT DISCHARGE SUMMARY PATIENT: TIARRA BERUMEN UNIT: [id number] ADM DATE: 11/05/19 AGE: 79 : 41 SEX: F ROOM/BED: D.1165 AUTHOR: NOA GODINEZ PHYSICIAN: REFERRING PHYSICIAN: DAVID SPRING MD DATE OF SERVICE: 11/07/19 Discharge Plan Patient Name: TIARRA BERUMEN Facility: [facility]:[place] : 1940 Planned Disposition: Home Anticipated Discharge Date: 11/07/19 Discharge Date: Expected LOS: 2 Initial Reviewer: [email or web address] Initial Review Date: 11/05/2019 Generated: 11/07/19 11:22 am Comments DCP- Discharge Planning Updated by [email or web address]: Johanna Larry on 11/07/19 9:[address] CM met with patient to discuss initial discharge planning. Patient is in agreement to proceed with the assessment. Patient reports that she lives at home independently with her , Megan.Silvano Berumen ([phone]). Patient is alert/oriented. Stairs/steps: 0. PCP: Dr. Jorge L Manzanares. Pharmacy: [facility]. Patient states she has been able to obtain all of her prescribed medications. HHS: No. DME: Shower chair, glucometer, walker. Patient gives permission to speak with family members/care givers. Patient is Independent with all ADL's, medication management REGULATORY PROCESS MANAGER. CM discussed the availability of HH, Rehab, SNF, OP Therapy, DME services. Patient denies the need for additional services at this time and feels safe returning to previous environment. Patient denies hospitalization within the past 30 days. Patient denies the use of community resources REGULATORY PROCESS MANAGER. Transportation at time of discharge: Spouse. CM will assist PRN with DC plans. DCPIA - Discharge Planning Initial Assessment Updated by [email or web address]: Johanna Larry on 11/07/19 10:13 am * Is the patient Alert and Oriented? Yes * How many steps to enter\exit or inside your home? * PCP Dr. Jorge L Manzanares * Pharmacy [facility] * Preadmission Environment Home with Family * ADLs Independent * Equipment Glucometer Rolling Walker Shower Chair * Other Equipment NA * List name and contact numbers for known caregivers / representatives who currently or will assist patient after discharge: Abhinav Berumen (spouse) [phone] * Verbal permission to speak to the caregivers and representatives has been obtained from the patient. Yes * Community resources currently utilized None * Please name any agencies selected above. NA * Additional services required to return to the preadmission environment? No * Can the patient safely return to the preadmission environment? Yes * Has this patient been hospitalized within the prior 30 days at any hospital? No Coverage Notice Reviewer: [email or web address] Jackie Larry Notice Issued Date-Time: 11/07/2019 10:17 Notice Type: IM Discharge Notice Notice Delivered To: Patient Relationship to Patient: Self Marketing Sales Representative Name: Tiarra Berumen Delivery Method: HAND - Hand Delivered Valerie Days: Prior Verbal Notification: Recipient Understood Notice: Yes Recipient Signature: Yes Med Rec Note Co-signed by Attending: Coverage Notice Comment: DC IMM signed/to chart. Last DP export: 11/07/19 9:16 a Patient Name: TIARRA BERUMEN Page [id number] at 1023 All edits/amendments must be made on the electronic document DICTATION DATE: 11/07/19 1022 CABLE MOCK UP ASSEMBLER: ALEC 11/07/19 1022 RPT#: [id number] DC DATE: STATUS: ADM IN [facility] [address] [place] [address] END OF REPORT
[2019-11-07] MEDS ORDERED: LOPRESSOR25 MG PO (10:24)
--- NOTE | 2019-11-07 10:31 | MORECARE ---
CASE MANAGEMENT DISCHARGE SUMMARY PATIENT: TIARRA BERUMEN UNIT: [id number] ADM DATE: 11/05/19 AGE: 79 : 41 SEX: F ROOM/BED: D.2335 AUTHOR: NOA GODINEZ PHYSICIAN: REFERRING PHYSICIAN: DAVID SPRING MD DATE OF SERVICE: 11/07/19 Discharge Plan Patient Name: TIARRA BERUMEN Facility: [facility]:[place] : 1940 Planned Disposition: Home Anticipated Discharge Date: 11/07/19 Discharge Date: Expected LOS: 2 Initial Reviewer: [email or web address] Initial Review Date: 11/05/2019 Generated: 11/07/19 11:30 am Comments DCP- Discharge Planning Updated by [email or web address]: Johanna Larry on 11/07/19 9:[address] CM met with patient to discuss initial discharge planning. Patient is in agreement to proceed with the assessment. Patient reports that she lives at home independently with her , Megan.Silvano Berumen ([phone]). Patient is alert/oriented. Stairs/steps: 0. PCP: Dr. Jorge L Manzanares. Pharmacy: [facility]. Patient states she has been able to obtain all of her prescribed medications. HHS: No. DME: Shower chair, glucometer, walker. Patient gives permission to speak with family members/care givers. Patient is Independent with all ADL's, medication management BRIDGE CONSTRUCTION INSPECTOR. CM discussed the availability of HH, Rehab, SNF, OP Therapy, DME services. Patient denies the need for additional services at this time and feels safe returning to previous environment. Patient denies hospitalization within the past 30 days. Patient denies the use of community resources BRIDGE CONSTRUCTION INSPECTOR. Transportation at time of discharge: Spouse. CM will assist PRN with DC plans. DCPIA - Discharge Planning Initial Assessment Updated by [email or web address]: Johanna Larry on 11/07/19 10:13 am * Is the patient Alert and Oriented? Yes * How many steps to enter\exit or inside your home? * PCP Dr. Jorge L Manzanares * Pharmacy [facility] * Preadmission Environment Home with Family * ADLs Independent * Equipment Glucometer Rolling Walker Shower Chair * Other Equipment NA * List name and contact numbers for known caregivers / representatives who currently or will assist patient after discharge: Abhinav Berumen (spouse) [phone] * Verbal permission to speak to the caregivers and representatives has been obtained from the patient. Yes * Community resources currently utilized None * Please name any agencies selected above. NA * Additional services required to return to the preadmission environment? No * Can the patient safely return to the preadmission environment? Yes * Has this patient been hospitalized within the prior 30 days at any hospital? No Coverage Notice Reviewer: [email or web address] Jackie Larry Notice Issued Date-Time: 11/07/2019 10:17 Notice Type: IM Discharge Notice Notice Delivered To: Patient Relationship to Patient: Self Custodial Supervisor Name: Tiarra Berumen Delivery Method: HAND - Hand Delivered Valerie Days: Prior Verbal Notification: Recipient Understood Notice: Yes Recipient Signature: Yes Med Rec Note Co-signed by Attending: Coverage Notice Comment: DC IMM signed/to chart. Last DP export: 11/07/19 9:22 a Patient Name: TIARRA BERUMEN Page 19999 at 1031 All edits/amendments must be made on the electronic document DICTATION DATE: 11/07/19 1030 BOARD STACKER: ALEC 11/07/19 1030 RPT#: [id number] DC DATE: STATUS: ADM IN [facility] [address] [place] [address] END OF REPORT
--- NOTE | 2019-11-07 12:21 | NUR ---
IV AND TELEMETRY DECD. DC PLANS GIVEN. UNDERSTANDING VOICED. ESCORTED TO CAR BY W/C.
--- NOTE | 2019-11-08 15:05 | MORECARE ---
CASE MANAGEMENT DISCHARGE SUMMARY PATIENT: TIARRA BERUMEN UNIT: [id number] ADM DATE: 11/05/19 AGE: 79 : 41 SEX: F ROOM/BED: D.2251 AUTHOR: NOA GODINEZ PHYSICIAN: REFERRING PHYSICIAN: DAVID SPRING MD DATE OF SERVICE: 11/08/19 Discharge Plan Patient Name: TIARRA BERUMEN Facility: [facility]:[place] : 1940 Planned Disposition: Home Anticipated Discharge Date: 11/07/19 Discharge Date: 11/07/2019 Expected LOS: 2 Initial Reviewer: [email or web address] Initial Review Date: 11/05/2019 Generated: 11/08/19 4:04 pm Comments DCP- Discharge Planning Updated by [id number]: Johanna Larry on 11/07/19 9:[address] CM met with patient to discuss initial discharge planning. Patient is in agreement to proceed with the assessment. Patient reports that she lives at home independently with her , Abhinav Berumen ([phone]). Patient is alert/oriented. Stairs/steps: 0. PCP: Dr. Jorge L Manzanares. Pharmacy: [facility]. Patient states she has been able to obtain all of her prescribed medications. HHS: No. DME: Shower chair, glucometer, walker. Patient gives permission to speak with family members/care givers. Patient is Independent with all ADL's, medication management HYDROMETEOROLOGICAL TECHNICIAN. CM discussed the availability of HH, Rehab, SNF, OP Therapy, DME services. Patient denies the need for additional services at this time and feels safe returning to previous environment. Patient denies hospitalization within the past 30 days. Patient denies the use of community resources HYDROMETEOROLOGICAL TECHNICIAN. Transportation at time of discharge: Spouse. CM will assist PRN with DC plans. DCPIA - Discharge Planning Initial Assessment Updated by [email or web address]: Johanna Larry on 11/07/19 10:13 am * Is the patient Alert and Oriented? Yes * How many steps to enter\exit or inside your home? * PCP Dr. Jorge L Maznanares * Pharmacy [facility] * Preadmission Environment Home with Family * ADLs Independent * Equipment Glucometer Rolling Walker Shower Chair * Other Equipment NA * List name and contact numbers for known caregivers / representatives who currently or will assist patient after discharge: Abhinav Berumen (spouse) [phone] * Verbal permission to speak to the caregivers and representatives has been obtained from the patient. Yes * Community resources currently utilized None * Please name any agencies selected above. NA * Additional services required to return to the preadmission environment? No * Can the patient safely return to the preadmission environment? Yes * Has this patient been hospitalized within the prior 30 days at any hospital? No Coverage Notice Reviewer: [id number] Jackie Larry Notice Issued Date-Time: 11/07/2019 10:17 Notice Type: IM Discharge Notice Notice Delivered To: Patient Relationship to Patient: Self Securities Research Analyst Name: Tiarra Berumen Delivery Method: HAND - Hand Delivered Valerie Days: Prior Verbal Notification: Recipient Understood Notice: Yes Recipient Signature: Yes Med Rec Note Co-signed by Attending: Coverage Notice Comment: DC IMM signed/to chart. Last DP export: 11/07/19 9:31 a Patient Name: TIARRA BERUMEN Page 23017 at 1505 All edits/amendments must be made on the electronic document DICTATION DATE: 11/08/19 1504 CERTIFIED NURSES' AIDE: ALEC 11/08/19 1504 RPT#: [id number] DC DATE:11/07/19 STATUS: DIS IN [facility] [address] [place] [address] END OF REPORT
--- NOTE | 2019-11-10 07:56 | EC ---
PATIENT:ASHVIN BERUMEN DATE OF SERVICE: 11/05/19 SEX: F MEDICAL RECORD: [id number] DATE OF : 42 LOCATION:D.M2 D.211 AGE OF PATIENT: 79 ADMISSION DATE: 11/05/19 REFERRING PHYSICIAN: INTERPRETING PHYSICIAN: DAVID SPRING MD ECHOCARDIOGRAM REPORT ECHO CHARGES 4 ECHO COMPLETE Date: 11/06/19 CLINICAL DIAGNOSIS: ACUTE NE ECHOCARDIOGRAPHIC MEASUREMENTS (adult normal given) AC root (d.<3.7cm) 3.4 cm LV Septum d (<1.2 cm> 1.2 cm Valve Excursion 1.5 cm LV Septum (systole) 1.6 cm Left Atria (s.<4.0cm> 3.7 cm LVPW d(<1.2cm) 1.1 cm RV (d.<2.3cm) 3.3 cm LVPW (sytole) 1.4 cm LV diastole(<5.6CM) 5.5 cm MV E-F(>70mm/sec) cm LV systole 4.0 cm LVOT Diameter 1.7 cm MV exc.(>10mm) cm Est.ejection fraction (50-75%) % DOPPLER: LVIT cm/sec A 88.0 cm/sec E 46.0 cm/sec LA cm/sec RVSP 17 mmHg LVOT 69 cm/sec AOP1/2T m/s Asc. Ao 105 cm/sec RVOT 69 cm/sec RA cm/sec PA 87 cm/sec AV Gradient Peak 4.39 mmHg AV Mean 2.17 mmHg AV Area 1.4 cm MV Gradient Peak 4.79 mmHg MV Mean 1.83 mmHg MV Area cm COMMENTS: [employer] Systems Administrator: 2 JASBIR MAGALLANES Supervisor Operations: 3 Dr. Hamm TAPE# PACS Pericardial Effusion N DATE OF SERVICE: Adequate 2D, color flow imaging, spectral Doppler, and M-Mode No LVH. LV internal dimensions are normal. There is hypokinesis of the mid anterior wall down to the anterior apex true apical region. LV function reduced at 35% to 40%. Aortic valve is sclerosed without evidence of stenosis by Doppler interrogation. Left atrium is normal at 3.7 cm. Mitral valve shows no prolapse. Mild MR. Right-sided chambers are grossly normal. Trace TR. ECHOCARDIOGRAM REPORT [id number] ASHVIN BERUMEN TRANSINT:[id number] Voice Confirmation ID: [id number] DOCUMENT ID: [id number] DAVID SPRING MD at 0756 CC: [id number] DICTATION DATE: 11/06/19 145 FOOD EQUIPMENT SERVICE TECHNICIAN: 11/06/19 1548 DIS IN 11/07/[id number] [place] [id number]
--- NOTE | 2019-11-10 07:56 | DS ---
PATIENT:ASHVIN BERUMEN :42 MEDICAL RECORD: [id number] DISCHARGE SUMMARY ADMISSION DATE: 11/05/19 DISCHARGE DATE: 11/07/19 DATE OF ADMISSION: 11/05/2019 DATE OF DISCHARGE: 11/07/2019 PROBLEM LIST: 1. Acute myocardial infarction. 2. 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 3. Hypertension. 4. Hyperlipidemia. 5. Diabetes mellitus. BRIEF HISTORY AND HOSPITAL COURSE: A 79-year-old female transferred from [place] with an acute anterior myocardial infarction. She was found to have severe 2-vessel disease with total occluded LAD as well as better than 90% right, underwent revascularization of both on an emergent basis, recovered in ICU, transfer reports ambulating with assistance. Discharged home in good condition. DISCHARGE MEDICATIONS: Include: Atorvastatin 40 mg p.o. daily, Losartan 50 mg p.o. daily, metoprolol 12.5 b.i.d., Plavix 75 every day, and aspirin 81 every day. She can resume her home diabetic medications. ACTIVITY: As tolerated. DIET: AHA diet. TRANSINT:[id number] Voice Confirmation ID: [id number] DOCUMENT ID: [id number] DAVID SPRING MD at 0756 CC: [id number] DICTATION DATE: 11/07/1938 CORPORATE INVESTIGATOR: 11/08/19 0337 DIS IN [address]/07/[id number] [place] [address]
== END 2019-11-07 12:22 | disposition home or self-care (01) | DRG 247 ==
LOC: D.ER 08:39 → D.ICU 11:07 → D.M2 11:07 → D.CLR 11:07 → D.ICU 15:27 → D.M2 11-06 18:34
PROVIDERS: ADMIT Internal Medicine Interventional Cardiology; ATTEND Internal Medicine Interventional Cardiology
PROC: B2111ZZ Fluoroscopy of Multiple Coronary Arteries using Low Osmolar Contrast (ICD-10-PCS; 2019-11-05)
PROC: B2151ZZ Fluoroscopy of Left Heart using Low Osmolar Contrast (ICD-10-PCS; 2019-11-05)
PROC: 027035Z Dilation of Coronary Artery, One Artery with Two Drug-eluting Intraluminal Devices, Percutaneous Approach (ICD-10-PCS; principal; 2019-11-05 08:50)
PROC: 4A023N7 Measurement of Cardiac Sampling and Pressure, Left Heart, Percutaneous Approach (ICD-10-PCS; 2019-11-05 08:50)
DX: I21.3 ST elevation (STEMI) myocardial infarction of unspecified site (principal); I10 Essential (primary) hypertension; E78.5 Hyperlipidemia, unspecified; E11.9 Type 2 diabetes mellitus without complications; I25.10 Atherosclerotic heart disease of native coronary artery without angina pectoris; I25.5 Ischemic cardiomyopathy